=== PATIENT | male | born 1970 | race African-American/Black ===

== ENCOUNTER 2019-06-20 12:18 | Emergency (ER) | payer MEDICAID ==
[~2019-06-20] VITALS: Ht 180.3 cm; Wt 76.2 kg
[~2019-06-20 12:18] MED LIST: BLOOD PRESSURE
[2019-06-20 12:26] VITALS: BP 145/88
--- NOTE | 2019-06-20 15:56 | NUR ---
JOSE ANTONIO RN: NOT IN LOBBY WHEN CALLED FOR REPEAT VITAL SIGNS
--- NOTE | 2019-06-20 16:13 | NUR ---
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
--- NOTE | 2019-06-20 16:24 | NUR ---
EVENTS INTERN: NOT IN LOBBY WHEN CALLED FOR REPEAT VITAL SIGNS
== END 2019-06-20 16:25 | disposition left against medical advice (07) ==
LOC: ED 16:19
DX: R51 Headache (principal)
CPT/HCPCS: 70450; 99284

== ENCOUNTER 2019-06-24 06:10 | Emergency (ER) | payer MEDICAID ==
[~2019-06-24] VITALS: Ht 180.3 cm; Wt 78.4 kg
[2019-06-24 06:14] VITALS: BP 136/91
--- NOTE | 2019-06-24 07:10 | NUR ---
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
--- NOTE | 2019-06-24 07:12 | NUR ---
PT WITH PAIN IN BACK OF HEAD, STATES "ITS NOT A HEADACHE" PT STATES HE WAS HERE ONE MONTH A FEW DAYS AGO HAD A CT DONE, PT WAS NEEDING TO GO TO WORK AT THAT TIME SO HE STATES HE LEFT WITHOUT GETTING RESULTS. SYMPTOMS HAVE PERSISTED SO HE CAME BACK
[2019-06-24] MEDS ORDERED: KETOROLAC 30 MG/1 ML IM ONE (08:30)
[2019-06-24] MEDS ORDERED: METHOCARBAMOL 750 MG TABLET PO ONE (08:30)
[2019-06-24] MEDS ORDERED: METHOCARBAMOL 750 MG TABLET ONE (09:16)
[2019-06-24] MEDS ORDERED: KETOROLAC 30 MG/1 ML ONE (09:16)
--- NOTE | 2019-06-24 09:21 | NUR ---
PT MEDICATED PER MAR. NAD NOTED AT THIS TIME
== END 2019-06-24 10:14 | disposition home or self-care (01) ==
LOC: ED 09:50
DX: S16.1XXA Strain of muscle, fascia and tendon at neck level, initial encounter (principal); G44.229 Chronic tension-type headache, not intractable; X58.XXXA Exposure to other specified factors, initial encounter; Y93.89 Activity, other specified; Y92.89 Other specified places as the place of occurrence of the external cause; Y99.8 Other external cause status
CPT/HCPCS: 96372; 99283; J1885

== ENCOUNTER 2019-10-11 10:25 | Emergency (ER) | payer MEDICAID ==
[~2019-10-11] VITALS: Ht 180.3 cm; Wt 75.8 kg
[2019-10-11 10:30] VITALS: BP 128/82
[2019-10-11] MEDS ORDERED: IBUPROFEN 600 MG TABLET ONE (10:54)
[2019-10-11] MEDS ORDERED: IBUPROFEN 600 MG TABLET PO ONE (12:00)
== END 2019-10-11 12:27 | disposition home or self-care (01) ==
LOC: ED 12:21
DX: M67.834 Other specified disorders of tendon, left wrist (principal); F17.200 Nicotine dependence, unspecified, uncomplicated
CPT/HCPCS: 29125; 99283

== ENCOUNTER 2020-02-07 07:48 | Emergency (ER) | payer MEDICAID ==
[~2020-02-07] VITALS: Ht 180.3 cm; Wt 74.7 kg
[2020-02-07] MEDS ORDERED: IBUPROFEN 800 MG TABLET PO STA (08:23)
--- NOTE | 2020-02-07 08:35 | NUR ---
Pt here for bandage to left pinky finger. Stitches placed on Wednesday, tore out yesterday. Steri-strips placed, bandaged, script for ABX provided.
[2020-02-07 08:36] VITALS: BP 127/77
== END 2020-02-07 08:39 | disposition home or self-care (01) ==
LOC: ED 08:21
DX: S51.811D Laceration without foreign body of right forearm, subsequent encounter (principal); S91.115D Laceration without foreign body of left lesser toe(s) without damage to nail, subsequent encounter; Z48.02 Encounter for removal of sutures; X58.XXXD Exposure to other specified factors, subsequent encounter
CPT/HCPCS: 99283